=== PATIENT | female | born 1925 | race Caucasian/White ===

== ENCOUNTER 2016-05-24 13:58 | Emergency (ER) | payer OTHER ==
[~2016-05-24] VITALS: Ht 1585 cm; Wt 72.6 kg
--- NOTE | 2016-05-24 14:08 | NUR ---
PT IS IN ROOM #2B. DR HASTINGS EVALUATED THE PT.
[2016-05-24] MEDS ORDERED: GLIP5TAB13 PO (14:19)
[2016-05-24] MEDS ORDERED: LOSA50TA21 PO (14:19)
[2016-05-24] MEDS ORDERED: IRON18TA PO (14:19)
[2016-05-24] MEDS ORDERED: KRIL1CAP22 PO (14:19)
[2016-05-24] MEDS ORDERED: THIO100C3 PO (14:19)
[2016-05-24] MEDS ORDERED: HYDR25TA4 PO (14:19)
[2016-05-24] MEDS ORDERED: ATEN25TA PO (14:19)
[2016-05-24] MEDS ORDERED: METF500T4 PO (14:19)
[2016-05-24] MEDS ORDERED: TURM500C8 PO (14:19)
[2016-05-24] MEDS ORDERED: POTA10TA PO (14:19)
[2016-05-24] MEDS ORDERED: MV-M1TAB38 PO (14:19)
[2016-05-24] MEDS ORDERED: MOVE FREE ULTR1 EACH PO (14:20)
[2016-05-24] MEDS ORDERED: [UNRECOGNIZED DRUG - CODE] (14:20)
[2016-05-24] MEDS ORDERED: ATOR10TA PO (14:20)
[2016-05-24] MEDS ORDERED: WARF2.5T6 PO (14:21)
[2016-05-24] MEDS: IV NORMAL SALINE 500 ML BAG IV ONE (14:27)
[2016-05-24 14:35] LABS: BASOPHILS # (AUTO) 0.1 K/uL (0.0-0.2); BASOPHILS % (AUTO) 0.9 % (0.0-2.0); EOSINOPHILS % (AUTO) 0.1 % (0.0-7.0); HEMATOCRIT 35.1 % (37.0-47.0); HEMOGLOBIN 11.5 g/dL (12.0-16.0); LYMPHOCYTES # (AUTO) 2.8 K/uL (0.8-4.8); LYMPHOCYTES % (AUTO) 24.8 % (20.5-51.5); MEAN CORPUSCULAR HEMOGLOBIN 30.4 uug (27.0-31.0); MEAN CORPUSCULAR HGB CONC 33 g/dL (32.0-37.0); MEAN CORPUSCULAR VOLUME 93.2 fL (81.0-99.0); MONOCYTES # (AUTO) 1.1 K/uL (0.1-1.30); MONOCYTES % (AUTO) 9.6 % (0.0-11.0); NEUTROPHILS # (AUTO) 7.4 K/uL (1.8-8.9); NEUTROPHILS % (AUTO) 64.6 % (38.5-71.5); PLATELET COUNT (AUTO) 364 K/uL (150-450); RED BLOOD CELL COUNT(AUTO) 3.77 MIL/uL (4.20-5.40); WHITE BLOOD COUNT (AUTO) 11.4 K/uL (4.0-11.2)
[2016-05-24 14:49] LABS: ALBUMIN 3.5 g/dL (3.4-5.0); BILIRUBIN,DIRECT 0.2 mg/dL (0.0-0.2); BILIRUBIN,TOTAL 0.9 mg/dL (0.2-1.0); CALCIUM 9.5 mg/dL (8.5-10.1); CREATININE 0.9 mg/dL (0.6-1.3); POTASSIUM 3.7 mmol/L (3.5-5.1); TOTAL PROTEIN, SERUM 7.3 g/dL (6.4-8.2)
[2016-05-24 14:51] LABS: TROPONIN I < 0.017 ng/mL (0.00-0.056)
[2016-05-24 15:02] LABS: BAND % (MANUAL) 8 % (0-10); LYMPHOCYTES % (MANUAL) 22 % (20-40); MONOCYTES % (MANUAL) 9 % (2-10); NEUTROPHILS % (MANUAL) 61 % (42-75); PLATELET ESTIMATE ADEQUATE
[2016-05-24 15:11] LABS: LACTIC ACID 1.7 mmol/L (0.4-2.0)
--- NOTE | 2016-05-24 15:16 | NUR ---
Eliel demarco in ED - 05/24/16 at 1856 by ERIN Pt provided copies of ct and dc;shannan nunez/ inderjit to home.
[2016-05-24 15:17] VITALS: BP 138/78
[2016-05-24 15:24] LABS: ABG BASE EXCESS -0.3 mmol/L; ABG HCO3 23.4 mmol/L; ABG PCO2 34.7 mmHg (35.0-45.0); ABG PH 7.446 (7.350-7.450); ABG PO2 87.3 mmHg (75.0-100.0); ABG SITE RIGHT RADIAL; ABG TOTAL HEMOGLOBIN 11.2 G/dL (12.0-16.0); COHb 1.2 % (0.5-1.5); MetHb 0.3 % (0.0-1.5); O2Hb 95.3 % (94.0-97.0); VENT MODE Nasal Cannula
[2016-05-24 17:12] LABS: *BILIRUBIN,URIN NEGATIVE (NEGATIVE); *BLOOD, URINE 2+ (NEGATIVE); *COLOR,URINE YELLOW (YELLOW); *KETONES,URINE TRACE (NEGATIVE); *PROTEIN,URINE 2+ (NEGATIVE); *UROBILINOGEN,URINE 0.2 E.U./dl (NORMAL); UGLUCOSE NEGATIVE (NEGATIVE)
[2016-05-24 17:24] LABS: LEUKOCYTE ESTERASE ,URINE TRACE (NEGATIVE); NITRITE, URINE POSITIVE (NEGATIVE)
[2016-05-24 17:25] LABS: *CLARITY,URINE HAZY (CLEAR)
[2016-05-24 17:26] LABS: BACTERIA,URINE MANY /HPF (NONE SEEN); MUCUS,URINE FEW /LPF (0-FEW); SQUAMOUS EPITHELIAL CELL,UR FEW /HPF (NONE SEEN)
[2016-05-24] MEDS: CEFTRIAXONE 1 G in IV DEXTROSE 5% 50 ML IV ONE (17:57)
--- NOTE | 2016-05-24 18:56 | NUR ---
PT WAS TRANSFERED TO [facility]. REPORT WAS GIVEN TO RN [facility]. REPORT WAS GIVEN TO [facility]. NO S/S OF DISTRESS AT THE TIME OF TRANSFER.
== END 2016-05-24 15:20 | disposition home or self-care (01) ==
LOC: ER 13:58
DX: R53.1 Weakness (principal); R09.02 Hypoxemia; I48.91 Unspecified atrial fibrillation; E11.9 Type 2 diabetes mellitus without complications; I10 Essential (primary) hypertension; E78.5 Hyperlipidemia, unspecified; K58.9 Irritable bowel syndrome, unspecified; M25.552 Pain in left hip; M25.551 Pain in right hip; Z79.01 Long term (current) use of anticoagulants
CPT/HCPCS: 36415; 36600; 70450; 71010; 71275; 72170; 80048; 80076; 81001; 83605; 84484; 85025; 85730; 87040 ×2; 87077; 87086; 87186 ×2; 93005; 96361; 96365; 99285; A4663; J7030; 70030-TC